=== PATIENT | male | born 1975 | race African-American/Black ===

== ENCOUNTER 2019-03-21 11:29 | Inpatient (IN) | payer OTHER ==
[2019-03-21 14:54] VITALS: BMI 17.8
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
[2019-03-21] MEDS ORDERED: MAG HYDROX/AL HYDROX/SIMETH 30 ML UNIT-DOSE CUP PO PRN (15:33)
[2019-03-21] MEDS ORDERED: IBUPROFEN 400 MG TABLET (FP) PO PRN (15:33)
[2019-03-21] MEDS ORDERED: BISMUTH SUBSALICYLATE 524 MG/30 ML UD PO PRN (15:33)
[2019-03-21] MEDS ORDERED: METHOCARBAMOL 500 MG TABLET PO PRN (15:33)
[2019-03-21] MEDS ORDERED: MELATONIN 5 MG TABLETS PO PRN (15:33)
[2019-03-21] MEDS ORDERED: NICOTINE POLACRILEX 2 MG GUM BUC PRN (15:33)
[2019-03-21] MEDS ORDERED: MENTHOL/PHENOL 1 EACH UD MM PRN (15:33)
[2019-03-21] MEDS ORDERED: hydrOXYzine PAMOATE 25 MG CAPSULE (FP) PO PRN (15:33)
[2019-03-21] MEDS ORDERED: ACETAMINOPHEN 325 MG TABLET (FP) PO PRN ×2 (15:33)
[2019-03-21] MEDS ORDERED: MAGNESIUM CITRATE 300 ML BOTTLE PO PRN (15:33)
[2019-03-21] MEDS ORDERED: chlordiazePOXIDE HCL 25 MG CAPSULE PO PRN (15:33)
[2019-03-21] MEDS ORDERED: MAGNESIUM HYDROX 2400MG/30ML ORAL SUSPENSION 30 ML CUP PO PRN (15:33)
--- NOTE | 2019-03-21 18:22 | PN ---
[facility] Progress Note Note: EKG reviewed. Denies chest pain, SOB, dizziness. Hx poly-substance use disorder - including cocaine.
[2019-03-21] MEDS: THIAMINE HCL 100 MG TABLET (FP) PO SCH (22:13)
[2019-03-21] MEDS: chlordiazePOXIDE HCL 25 MG CAPSULE PO SCH (22:13)
[2019-03-21] MEDS: FLUOCINONIDE 0.05% CREAM (15 GM TUBE) TP SCH (22:13)
[2019-03-22] MEDS: chlordiazePOXIDE HCL 25 MG CAPSULE PO SCH ×4 (06:23→22:12)
[2019-03-22] MEDS: PRENATAL VITAMINS W/ FOLIC ACID TABLET (FP) PO SCH (10:24)
[2019-03-22] MEDS: FLUOCINONIDE 0.05% CREAM (15 GM TUBE) TP SCH ×2 (10:24→22:12)
[2019-03-22 10:38] LABS: ALBUMIN 3.6 g/dl (3.4-5.0); BILIRUBIN,TOTAL 0.7 mg/dL (0.2-1); BLOOD UREA NITROGEN 9.8 mg/dL (7-18); CALCIUM 8.9 mg/dL (8.5-10.1); CREATININE 1.1 mg/dL (0.55-1.3); POTASSIUM 4.2 mmol/L (3.5-5.1); TOT PROT 6.3 g/dl (6.4-8.2)
[2019-03-22 11:46] LABS: HEMATOCRIT 45.5 % (35.4-49); HEMOGLOBIN 14.9 GM/dL (11.7-16.9); MCH 29.3 pg (25.7-33.7); MCHC 32.8 g/dl (32.0-35.9); MEAN CELL VOLUME 89.3 fl (80-96); MEAN PLT VOLUME 9.5 fl (7.5-11.1); RDW 14.2 % (11.9-15.9); WHITE BLOOD COUNT 3.6 K/mm3 (4.0-10.0)
--- NOTE | 2019-03-22 12:09 | PN ---
S CIWA - CIWA Score Nausea/Vomitin-No Nausea/No Vomiting Muscle Tremors: 2 Anxiety: 2 Agitation: 2 Paroxysmal Sweats: 2 Orientation: 0-Oriented Tacttile Disturbances: 0-None Auditory Disturbances: 0-None Visual Disturbances: 0-None Headache: 2-Mild CIWA-Ar Total Score: 10 S Progress Note (SOAP) Subjective: c/o sweats, headache, anxiety, and shakes. Objective: 03/22/19 12:09 Vital Signs 03/22/19 03/22/19 06:15 09:37 Temperature 97.5 F L 97.6 F Pulse Rate 60 75 Respiratory 18 20 Rate Blood Pressure 114/76 106/78 Lab Results WBC 3.6 K/mm3 (4.0-10.0) L 03/22/19 08:00 RBC 5.10 M/mm3 (4.00-5.60) 03/22/19 08:00 Hgb 14.9 GM/dL (11.7-16.9) 03/22/19 08:00 Hct 45.5 % (35.4-49) 03/22/19 08:00 MCV 89.3 fl (80-96) 03/22/19 08:00 MCHC 32.8 g/dl (32.0-35.9) 03/22/19 08:00 RDW 14.2 % (11.9-15.9) 03/22/19 08:00 Sodium 142 mmol/L (136-145) 03/22/19 08:00 Potassium 4.2 mmol/L (3.5-5.1) 03/22/19 08:00 Chloride 106 mmol/L (98-107) 03/22/19 08:00 Carbon Dioxide 30 mmol/L (21-32) 03/22/19 08:00 Anion Gap 6 MMOL/L (8-16) L 03/22/19 08:00 BUN 9.8 mg/dL (7-18) 03/22/19 08:00 Creatinine 1.1 mg/dL (0.55-1.3) 03/22/19 08:00 Random Glucose 89 mg/dL (74-106) 03/22/19 08:00 Calcium 8.9 mg/dL (8.5-10.1) 03/22/19 08:00 Labs noted. Assessment: 03/22/19 12:09 AOX3, in no respiratory distress, full rom, ambulating in the unit. Withdrawal symptoms. Plan: continue detox increase fluids
[2019-03-22 12:50] LABS: SICKLE CELL SCREEN POSITIVE (NEGATIVE)
[2019-03-22 15:15] LABS: PLATELET COUNT 260 K/MM3 (134-434)
--- NOTE | 2019-03-22 16:58 | EKG ---
Test Reason : Blood Pressure : / mmHG Vent. Rate : 050 BPM Atrial Rate : 050 BPM P-R Int : 186 ms QRS Dur : 100 ms QT Int : 456 ms P-R-T Axes : 051 078 066 degrees QTc Int : 415 ms SINUS BRADYCARDIA MINIMAL VOLTAGE CRITERIA FOR LVH, MAY BE NORMAL VARIANT BORDERLINE ECG NO PREVIOUS ECGS AVAILABLE Confirmed by ROCKY HILL, GILLES ([id number]) on 03/22/2019 4:57:35 PM Referred By: Confirmed By:GILLES HIDALGO MD
[2019-03-22] MEDS: THIAMINE HCL 100 MG TABLET (FP) PO SCH (22:12)
[2019-03-23] MEDS: chlordiazePOXIDE HCL 25 MG CAPSULE PO SCH ×3 (06:23→17:19)
[2019-03-23] MEDS: PRENATAL VITAMINS W/ FOLIC ACID TABLET (FP) PO SCH (10:31)
[2019-03-23] MEDS: FLUOCINONIDE 0.05% CREAM (15 GM TUBE) TP SCH ×2 (10:32→22:25)
--- NOTE | 2019-03-23 13:14 | PN ---
[facility] CIWA - CIWA Score Nausea/Vomitin-No Nausea/No Vomiting Muscle Tremors: 2 Anxiety: 2 Agitation: 2 Paroxysmal Sweats: 1-Minimal Palms Moist Orientation: 0-Oriented Tacttile Disturbances: 0-None Auditory Disturbances: 0-None Visual Disturbances: 0-None Headache: 0-None Present CIWA-Ar Total Score: 7 S Progress Note (SOAP) Subjective: doing well with librium detox regimen feeling better today ambulating on hallway social with peers Objective: 03/23/19 13:15 Vital Signs Temperature 97.6 F 03/23/19 09:16 Pulse Rate 97 H 03/23/19 09:16 Respiratory Rate 18 03/23/19 09:16 Blood Pressure 99/75 03/23/19 09:16 O2 Sat by Pulse Oximetry (%) Laboratory Last Values WBC 3.6 K/mm3 (4.0-10.0) L 03/22/19 08:00 RBC 5.10 M/mm3 (4.00-5.60) 03/22/19 08:00 Hgb 14.9 GM/dL (11.7-16.9) 03/22/19 08:00 Hct 45.5 % (35.4-49) 03/22/19 08:00 MCV 89.3 fl (80-96) 03/22/19 08:00 MCH 29.3 pg (25.7-33.7) 03/22/19 08:00 MCHC 32.8 g/dl (32.0-35.9) 03/22/19 08:00 RDW 14.2 % (11.9-15.9) 03/22/19 08:00 Plt Count 260 K/MM3 (134-434) 03/22/19 08:00 MPV 9.5 fl (7.5-11.1) 03/22/19 08:00 Sickle Cell Screen Positive (NEGATIVE) 03/22/19 08:00 Sodium 142 mmol/L (136-145) 03/22/19 08:00 Potassium 4.2 mmol/L (3.5-5.1) 03/22/19 08:00 Chloride 106 mmol/L (98-107) 03/22/19 08:00 Carbon Dioxide 30 mmol/L (21-32) 03/22/19 08:00 Anion Gap 6 MMOL/L (8-16) L 03/22/19 08:00 BUN 9.8 mg/dL (7-18) 03/22/19 08:00 Creatinine 1.1 mg/dL (0.55-1.3) 03/22/19 08:00 Est GFR (CKD-EPI)AfAm 95.46 03/22/19 08:00 Est GFR (CKD-EPI)NonAf 82.36 03/22/19 08:00 Random Glucose 89 mg/dL (74-106) 03/22/19 08:00 Calcium 8.9 mg/dL (8.5-10.1) 03/22/19 08:00 Total Bilirubin 0.7 mg/dL (0.2-1) 03/22/19 08:00 AST 43 U/L (15-37) H 03/22/19 08:00 ALT 39 U/L (13-61) 03/22/19 08:00 Alkaline Phosphatase 70 U/L (45-117) 03/22/19 08:00 Total Protein 6.3 g/dl (6.4-8.2) L 03/22/19 08:00 Albumin 3.6 g/dl (3.4-5.0) 03/22/19 08:00 RPR Titer Nonreactive (NONREACTIVE) 03/22/19 08:00 lab noted Assessment: 03/23/19 13:16 alcohol withdrawal sx Plan: continue detox
[2019-03-23] MEDS: chlordiazePOXIDE HCL 10 MG CAPSULE PO SCH (22:25)
[2019-03-23] MEDS: THIAMINE HCL 100 MG TABLET (FP) PO SCH (22:25)
[2019-03-23] MEDS ORDERED: chlordiazePOXIDE HCL 10 MG CAPSULE PO PRN (23:00)
[2019-03-24] MEDS: chlordiazePOXIDE HCL 10 MG CAPSULE PO SCH ×2 (05:47→10:20)
[2019-03-24 09:01] VITALS: BP 108/64; PULSE 96; TEMP 97
[2019-03-24] MEDS: FLUOCINONIDE 0.05% CREAM (15 GM TUBE) TP SCH (10:19)
[2019-03-24] MEDS: PRENATAL VITAMINS W/ FOLIC ACID TABLET (FP) PO SCH (10:19)
--- NOTE | 2019-03-24 10:40 | DS ---
[facility] Detox Discharge Summary Admission Date: 03/21/19 Discharge Date: 03/24/19 - History Present History: Alcohol Dependence Additional Comments: 44 years old male admitted on 03/21/19 for alcohol withdrawal stabilization feeling better today preferring to go to alternated out patient alcohol rehab program today alert no acute distress denies suicidal ideation Pertinent Past History: bring in medication list and lab report to aftercare appointment - Physical Exam Results Vital Signs: Vital Signs Temperature 97.0 F L 03/24/19 09:01 Pulse Rate 96 H 03/24/19 09:01 Respiratory Rate 20 03/24/19 09:01 Blood Pressure 108/64 03/24/19 09:01 O2 Sat by Pulse Oximetry (%) Pertinent Admission Physical Exam Findings: alcohol withdrawal sx Vital Signs Temperature 97.0 F L 03/24/19 09:01 Pulse Rate 96 H 03/24/19 09:01 Respiratory Rate 20 03/24/19 09:01 Blood Pressure 108/64 03/24/19 09:01 O2 Sat by Pulse Oximetry (%) Laboratory Last Values WBC 3.6 K/mm3 (4.0-10.0) L 03/22/19 08:00 RBC 5.10 M/mm3 (4.00-5.60) 03/22/19 08:00 Hgb 14.9 GM/dL (11.7-16.9) 03/22/19 08:00 Hct 45.5 % (35.4-49) 03/22/19 08:00 MCV 89.3 fl (80-96) 03/22/19 08:00 MCH 29.3 pg (25.7-33.7) 03/22/19 08:00 MCHC 32.8 g/dl (32.0-35.9) 03/22/19 08:00 RDW 14.2 % (11.9-15.9) 03/22/19 08:00 Plt Count 260 K/MM3 (134-434) 03/22/19 08:00 MPV 9.5 fl (7.5-11.1) 03/22/19 08:00 Sickle Cell Screen Positive (NEGATIVE) 03/22/19 08:00 Sodium 142 mmol/L (136-145) 03/22/19 08:00 Potassium 4.2 mmol/L (3.5-5.1) 03/22/19 08:00 Chloride 106 mmol/L (98-107) 03/22/19 08:00 Carbon Dioxide 30 mmol/L (21-32) 03/22/19 08:00 Anion Gap 6 MMOL/L (8-16) L 03/22/19 08:00 BUN 9.8 mg/dL (7-18) 03/22/19 08:00 Creatinine 1.1 mg/dL (0.55-1.3) 03/22/19 08:00 Est GFR (CKD-EPI)AfAm 95.46 03/22/19 08:00 Est GFR (CKD-EPI)NonAf 82.36 03/22/19 08:00 Random Glucose 89 mg/dL (74-106) 03/22/19 08:00 Calcium 8.9 mg/dL (8.5-10.1) 03/22/19 08:00 Total Bilirubin 0.7 mg/dL (0.2-1) 03/22/19 08:00 AST 43 U/L (15-37) H 03/22/19 08:00 ALT 39 U/L (13-61) 03/22/19 08:00 Alkaline Phosphatase 70 U/L (45-117) 03/22/19 08:00 Total Protein 6.3 g/dl (6.4-8.2) L 03/22/19 08:00 Albumin 3.6 g/dl (3.4-5.0) 03/22/19 08:00 RPR Titer Nonreactive (NONREACTIVE) 03/22/19 08:00 lab noted - Treatment Hospital Course: Detox Protocol Followed, Detoxed Safely, Responded well, Discharged Condition Good, Rehab Referral Accepted Patient has Accepted a Rehab Referral to: alternated alcohol out patient rehab - Medication Discharge Medications: Ambulatory Orders NK [No Known Home Medication] 03/12/19 - Diagnosis (1) Alcohol dependence with uncomplicated withdrawal Current Visit: Yes Status: Acute (2) Eczema Current Visit: Yes Status: Chronic Qualifiers: Eczema type: unspecified Qualified Code(s): L30.9 - Dermatitis, unspecified (3) Nicotine dependence Current Visit: Yes Status: Acute Qualifiers: Nicotine product type: cigarettes Substance use status: in withdrawal Qualified Code(s): F17.213 - Nicotine dependence, cigarettes, with withdrawal (4) Weight loss Current Visit: Yes Status: Acute - AMA Did Patient Leave Against Medical Advice: No
[2019-03-24] MEDS ORDERED: chlordiazePOXIDE HCL 10 MG CAPSULE PO SCH (23:00)
[2019-03-25 16:15] LABS: HGB SOLUBILITY Positive (Negative); Hgb A 56.5 % (96.4-98.8); Hgb C 0 % (0.0); Hgb F 0 % (0.0-2.0); Hgb S 39.4 % (0.0)
== END 2019-03-24 10:51 | disposition home or self-care (01) | DRG 897 ==
LOC: YASAS 11:29 → Y3N 15:25
PROVIDERS: ADMIT Surgery; ATTEND Surgery
PROC: HZ2ZZZZ Detoxification Services for Substance Abuse Treatment (ICD-10-PCS; principal; 2019-03-21)
DX: F10.230 Alcohol dependence with withdrawal, uncomplicated (principal); F14.20 Cocaine dependence, uncomplicated; Z68.1 Body mass index [BMI] 19.9 or less, adult; F12.20 Cannabis dependence, uncomplicated; F17.210 Nicotine dependence, cigarettes, uncomplicated; E86.0 Dehydration; L30.9 Dermatitis, unspecified; R55 Syncope and collapse; R63.4 Abnormal weight loss
CPT/HCPCS: 36415; 80053; 83021; 85027; 85660; 86593; 93005; 93010

== ENCOUNTER 2021-06-27 17:43 | Inpatient (IN) | payer OTHER ==
[2021-06-27 19:54] VITALS: BMI 18.8
[2021-06-27] MEDS ORDERED: METHOCARBAMOL 500 MG TABLET PO PRN (21:09)
[2021-06-27] MEDS ORDERED: hydrOXYzine PAMOATE 25 MG CAPSULE (FP) PO PRN (21:09)
[2021-06-27] MEDS ORDERED: ONDANSETRON *ODT* 4 MG TABLET SL PRN (21:09)
[2021-06-27] MEDS ORDERED: P-EPHED 60MG/TRIPROLIDI 2.5MG TABLET PO PRN (21:09)
[2021-06-27] MEDS ORDERED: MENTHOL/PHENOL 1 EACH UD MM PRN (21:09)
[2021-06-27] MEDS ORDERED: MAGNESIUM HYDROX 2400MG/30ML ORAL SUSPENSION 30 ML CUP PO PRN (21:09)
[2021-06-27] MEDS ORDERED: NICOTINE 10 MG CARTRIDGE (INHALER) IH PRN (21:09)
[2021-06-27] MEDS ORDERED: BISMUTH SUBSALICYLATE 524 MG/30 ML PO PRN (21:09)
[2021-06-27] MEDS ORDERED: MAGNESIUM CITRATE 300 ML BOTTLE PO PRN (21:09)
[2021-06-27] MEDS ORDERED: MAG HYDROX/AL HYDROX/SIMETH 30 ML UNIT-DOSE CUP PO PRN (21:09)
[2021-06-27] MEDS ORDERED: IBUPROFEN 400 MG TABLET (FP) PO PRN (21:09)
[2021-06-27] MEDS ORDERED: guaiFENesin 200 MG/10 ML 10 ML UNIT-DOSE CUPS PO PRN (21:09)
[2021-06-27] MEDS ORDERED: ACETAMINOPHEN 325 MG TABLET (FP) PO PRN ×2 (21:09)
[2021-06-27] MEDS ORDERED: DICYCLOMINE HCL 10 MG CAPSULE PO PRN (21:09)
[2021-06-27] MEDS ORDERED: THIAMINE HCL 100 MG TABLET (FP) PO SCH (22:00)
[2021-06-27] MEDS ORDERED: MELATONIN 5 MG TABLETS PO SCH (22:00)
[2021-06-28] MEDS ORDERED: MAG HYDROX/AL HYDROX/SIMETH 30 ML UNIT-DOSE CUP PO PRN (09:07)
[2021-06-28] MEDS ORDERED: P-EPHED 60MG/TRIPROLIDI 2.5MG TABLET PO PRN (09:07)
[2021-06-28] MEDS ORDERED: MAGNESIUM HYDROX 2400MG/30ML ORAL SUSPENSION 30 ML CUP PO PRN (09:07)
[2021-06-28] MEDS ORDERED: LOPERAMIDE HCL 2 MG CAPSULE PO PRN (09:07)
[2021-06-28] MEDS ORDERED: ACETAMINOPHEN 325 MG TABLET (FP) PO PRN (09:07)
[2021-06-28] MEDS ORDERED: NICOTINE 10 MG CARTRIDGE (INHALER) IH PRN (09:07)
[2021-06-28] MEDS ORDERED: guaiFENesin 200 MG/10 ML 10 ML UNIT-DOSE CUPS PO PRN (09:07)
[2021-06-28] MEDS ORDERED: IBUPROFEN 400 MG TABLET (FP) PO PRN (09:07)
[2021-06-28] MEDS ORDERED: MAGNESIUM CITRATE 300 ML BOTTLE PO PRN (09:07)
[2021-06-28] MEDS ORDERED: NICOTINE 14 MG/24 HOURS TOPICAL PATCH TD SCH (10:00)
[2021-06-28] MEDS ORDERED: PRENATAL VITAMINS W/ FOLIC ACID TABLET (FP) PO SCH (10:00)
[2021-06-28] MEDS: PRENATAL VITAMINS W/ FOLIC ACID TABLET (FP) PO SCH (11:57)
[2021-06-28] MEDS: NICOTINE 7 MG/24 HOURS TOPICAL PATCH TD SCH (11:57)
[2021-06-28] MEDS: hydrOXYzine PAMOATE 25 MG CAPSULE (FP) PO SCH ×4 (11:57→21:06)
[2021-06-28 13:07] LABS: HEMOGLOBIN 13.5 GM/dL (11.7-16.9); MCH 29.9 pg (25.7-33.7); MCHC 34.5 g/dl (32.0-35.9); MEAN CELL VOLUME 86.5 fl (80-96); MEAN PLT VOLUME 8.7 fl (7.5-11.1); PLATELET COUNT 211 10^3/uL (134-434); RBC 4.51 M/mm3 (4.00-5.60); RDW 14.3 % (11.9-15.9)
[2021-06-28 13:11] LABS: CALCIUM 8.5 mg/dL (8.5-10.1)
[2021-06-28 13:12] LABS: ALBUMIN 3.4 g/dl (3.4-5.0)
[2021-06-28 13:14] LABS: BLOOD UREA NITROGEN 8.4 mg/dL (7-18)
[2021-06-28 13:16] LABS: BILIRUBIN,TOTAL 0.6 mg/dL (0.2-1); TOT PROT 6.2 g/dl (6.4-8.2)
[2021-06-28] MEDS ORDERED: TUBERCULIN PPD 5 TU/0.1ML VIAL ID ONE (15:43)
[2021-06-28] MEDS: THIAMINE HCL 100 MG TABLET (FP) PO SCH (21:06)
[2021-06-28] MEDS: MELATONIN 5 MG TABLETS PO SCH (21:06)
[2021-06-28] MEDS: OLANZapine 5 MG TABLET PO SCH (21:06)
[2021-06-29] MEDS: hydrOXYzine PAMOATE 25 MG CAPSULE (FP) PO SCH ×2 (06:53→09:55)
[2021-06-29] MEDS: PRENATAL VITAMINS W/ FOLIC ACID TABLET (FP) PO SCH (09:48)
[2021-06-29] MEDS: NICOTINE 7 MG/24 HOURS TOPICAL PATCH TD SCH (09:48)
[2021-06-29] MEDS ORDERED: hydrOXYzine PAMOATE 25 MG CAPSULE (FP) PO PRN (10:18)
[2021-06-29 18:42] LABS: PH,URINE 7.5 (5.0-8.0); URINE APPEARANCE CLEAR; URINE BILIRUBIN NEGATIVE (NEGATIVE); URINE COLOR YELLOW; URINE GLUCOSE (UA) NEGATIVE (NEGATIVE); URINE KETONE NEGATIVE (NEGATIVE); URINE LEUK ESTERASE NEGATIVE (NEGATIVE); URINE NITRITE NEGATIVE (NEGATIVE); URINE PROTEIN NEGATIVE (NEGATIVE)
[2021-06-29] MEDS: MELATONIN 5 MG TABLETS PO SCH (21:25)
[2021-06-29] MEDS: OLANZapine 5 MG TABLET PO SCH (21:25)
[2021-06-29] MEDS: THIAMINE HCL 100 MG TABLET (FP) PO SCH (21:26)
[2021-06-30] MEDS: PRENATAL VITAMINS W/ FOLIC ACID TABLET (FP) PO SCH (09:49)
[2021-06-30] MEDS: NICOTINE 7 MG/24 HOURS TOPICAL PATCH TD SCH (09:49)
[2021-06-30] MEDS: OLANZapine 5 MG TABLET PO SCH (21:21)
[2021-06-30] MEDS: THIAMINE HCL 100 MG TABLET (FP) PO SCH (21:21)
[2021-06-30] MEDS: MELATONIN 5 MG TABLETS PO SCH (21:21)
[2021-07-01] MEDS: PRENATAL VITAMINS W/ FOLIC ACID TABLET (FP) PO SCH (09:47)
[2021-07-01] MEDS: NICOTINE 7 MG/24 HOURS TOPICAL PATCH TD SCH (09:47)
[2021-07-01] MEDS: OLANZapine 5 MG TABLET PO SCH (21:14)
[2021-07-01] MEDS: THIAMINE HCL 100 MG TABLET (FP) PO SCH (21:14)
[2021-07-01] MEDS: MELATONIN 5 MG TABLETS PO SCH (21:14)
[2021-07-02] MEDS: PRENATAL VITAMINS W/ FOLIC ACID TABLET (FP) PO SCH (09:46)
[2021-07-02] MEDS: NICOTINE 7 MG/24 HOURS TOPICAL PATCH TD SCH (09:46)
[2021-07-02] MEDS: THIAMINE HCL 100 MG TABLET (FP) PO SCH (21:24)
[2021-07-02] MEDS: MELATONIN 5 MG TABLETS PO SCH (21:24)
[2021-07-02] MEDS: OLANZapine 5 MG TABLET PO SCH (21:24)
[2021-07-03] MEDS: NICOTINE 7 MG/24 HOURS TOPICAL PATCH TD SCH (09:56)
[2021-07-03] MEDS: PRENATAL VITAMINS W/ FOLIC ACID TABLET (FP) PO SCH (09:56)
[2021-07-03] MEDS: MELATONIN 5 MG TABLETS PO SCH (21:27)
[2021-07-03] MEDS: OLANZapine 5 MG TABLET PO SCH (21:27)
[2021-07-03] MEDS: THIAMINE HCL 100 MG TABLET (FP) PO SCH (21:27)
[2021-07-04] MEDS: NICOTINE 7 MG/24 HOURS TOPICAL PATCH TD SCH (10:26)
[2021-07-04] MEDS: PRENATAL VITAMINS W/ FOLIC ACID TABLET (FP) PO SCH (10:26)
[2021-07-04] MEDS ORDERED: MENTHOL/PHENOL 1 EACH UD MM PRN (13:53)
[2021-07-04] MEDS ORDERED: PT OWN MED DRAWER 7, Y5N ONE (20:24)
[2021-07-04] MEDS: OLANZapine 5 MG TABLET PO SCH (21:27)
[2021-07-04] MEDS: THIAMINE HCL 100 MG TABLET (FP) PO SCH (21:27)
[2021-07-04] MEDS: MELATONIN 5 MG TABLETS PO SCH (21:27)
[2021-07-05 06:50] VITALS: TEMP 97.5
[2021-07-05] MEDS ORDERED: PT OWN MED DRAWER 7, Y5N ONE (08:45)
[2021-07-05] MEDS: PRENATAL VITAMINS W/ FOLIC ACID TABLET (FP) PO SCH (10:14)
[2021-07-05] MEDS: NICOTINE 7 MG/24 HOURS TOPICAL PATCH TD SCH (10:15)
[2021-07-05] MEDS: OLANZapine 5 MG TABLET PO SCH (21:38)
[2021-07-05] MEDS: MELATONIN 5 MG TABLETS PO SCH (21:38)
[2021-07-05] MEDS: THIAMINE HCL 100 MG TABLET (FP) PO SCH (21:38)
[2021-07-06 06:54] VITALS: BP 103/66; PULSE 75
== END 2021-07-06 09:00 | disposition home or self-care (01) | DRG 895 ==
LOC: YASAS 17:43 → Y3E 06-28 09:31
PROVIDERS: ADMIT Allergy & Immunology; ATTEND Allergy & Immunology
PROC: HZ42ZZZ Group Counseling for Substance Abuse Treatment, Cognitive-Behavioral (ICD-10-PCS; principal; 2021-06-28)
DX: F10.20 Alcohol dependence, uncomplicated (principal); F14.20 Cocaine dependence, uncomplicated; F19.282 Other psychoactive substance dependence with psychoactive substance-induced sleep disorder; F12.20 Cannabis dependence, uncomplicated; F19.24 Other psychoactive substance dependence with psychoactive substance-induced mood disorder; F31.9 Bipolar disorder, unspecified; L30.9 Dermatitis, unspecified; Z86.19 Personal history of other infectious and parasitic diseases; Z98.890 Other specified postprocedural states; Z56.0 Unemployment, unspecified; Z59.0 Homelessness
CPT/HCPCS: 36415; 80053; 81003; 85027; 86780; 86803; C9803; U0003; U0005